=== PATIENT | female | born 1980 | race Caucasian/White ===

== ENCOUNTER 2018-07-16 12:34 | Inpatient (IN) ==
--- NOTE | 2018-07-16 14:00 | ED ---
History of Present Illness Primary Care Physician: No Primary Care Physician Chief Complaint: Leaking of fluid History of Present Illness: 38 year-old , IUP at 40.5 care complicated by advanced maternal age, cervical cancer The patient presents complaining of the onset of leaking of fluid about 9:15 or 9:30 am. She reports she had a large gush of clear fluid and a second gush of clear to cloudy fluid. She does not believe it was urine. She has continued having some leaking since. She reports that she saturated half of a towel. She denies any painful contractions or cramping. She reports good movement. She denies any vaginal bleeding. She has no other obstetrical complaints or concerns today. INTERMEDIATE MANAGER: , history of cervical cancer s/p [facility] PMH: Denies FH: Denies PSH: Breast augmentation, [facility] SH: Denies Meds/Allergies: As per EMR - Inpatient Certification I certify that the inpatient services were ordered in accordance with Medicare regulations governing the order. This includes certification that hospital inpatient services are reasonable and necessary and in the case of services not specified as inpatient-only under 42 CFR 419.22(n), that they are appropriately provided as inpatient services in accordance to with the 2-midnight benchmark under 43 CFR 412.3(e) Review of Systems All other systems reviewed negative except as stated in HPI PMFSH - Travel History Recent Travel in the [place] Within the Last 8 Weeks: No Recent Travel Out of the Country Within the Last 8 Weeks: No Medications and Allergies Allergies Allergy/AdvReac Type Severity Reaction Status Date / Time No Known Allergies Allergy Verified 07/16/18 12:53 Home Medications Medication Instructions Recorded Confirmed Type vit,[id number] 1 tab PO DAILY 07/16/18 07/16/18 History [PNV 29-1] Exam Vital signs: Vital Signs 07/16/18 13:10 07/16/18 13:15 Temperature 98.1 F Pulse Rate 88 Respiratory Rate 18 Blood Pressure 126/87 Intake & Output 07/15/18 07/16/18 07/16/18 18:59 06:59 18:59 Weight 61.689 kg Narrative: GENERAL: Well-nourished, well-developed patient. SKIN: Warm and dry. No rashes, masses, lesions noted HEAD: Normocephalic and atraumatic. EYES: No scleral icterus. No injection or drainage. ENT: No nasal drainage noted. Mucous membranes pink. Airway patent. NECK: Supple, trachea midline. No JVD. CARDIOVASCULAR: Regular rate and rhythm without murmurs, gallops, or rubs. RESPIRATORY: Breath sounds equal bilaterally. No accessory muscle use. BREASTS: Deferred ABDOMEN/GI: Abdomen soft, non-tender, bowel sounds present, no rebound, no guarding Gravid GENITOURINARY: Normal EGBUS. No cervical or vaginal masses noted. Increased fluid consistent with ROM. Amnisure positive. No cervical or vaginal masses noted. SVE closed to fingertip, 50, -2/-3 FHT's: heart tones are in the 130s with moderate long-term variability, good accelerations, no decelerations noted. This a category 1 heart rate tracing and reactive NST. EXTREMITIES: No cyanosis or edema. BACK: Nontender without obvious deformity. NEUROLOGICAL: Awake and alert x3. Normal memory/affect. Cranial nerves II through XII grossly intact. Grossly normal range of motion.. Motor and sensory grossly within normal limits. Five out of 5 muscle strength in all muscle groups. Normal speech. Assessment and Plan - Plan Assessment/plan: 1. IUP at 40.5 2. Advanced maternal age 3. PROM: Patient shows evidence of ruptured membranes. Will admit to Dr. Allen. Dr. Allen is aware. 4. well-being: Reassuring testing with reactive NST and category 1 heart rate tracing. Continue monitoring 5. GBS negative 6. History of cervical cancer status post [facility] Discharge Plan - Discharge Disposition Patient Disposition: 30 Still Patient - Physicians Team ED Provider: Massiel Moses Primary Care Provider: Primary Care Ben,Dian
[2018-07-16] MEDS ORDERED: fentaNYL Citrate Inj 100 MCG/2 ML Ampul IV.PUSH PRN ×2 (14:06)
[2018-07-16] MEDS ORDERED: Naloxone Inj 0.4 MG/ML Vial IV.PUSH PRN (14:06)
[2018-07-16] MEDS ORDERED: Sodium Chlor 0.9% Inj 500 ML IV.SIG PRN (14:06)
[2018-07-16] MEDS ORDERED: Sod Chloride 0.9% Inj 1,000 ML IV.CONT PRN (14:06)
[2018-07-16] MEDS ORDERED: Oxytocin 30 Units/500ml Premix 30 UNITS/500 ML BAG IV.SIG ONE (14:06)
[2018-07-16] MEDS ORDERED: Citric Acid/Sodium Citrate Liq 30 ML UDC PO SCH (14:15)
[2018-07-16 14:51] LABS: Baso # (Auto) 0.1 th/mm3 (0.0-0.2); Baso % (Auto) 0.6 % (0.0-2.0); Eos % (Auto) 0.2 % (0.0-4.0); Hematocrit 39.2 % (35.0-46.0); Hemoglobin 13.2 gm/dL (11.6-15.3); Lymph % (Auto) 18.7 % (9.0-44.0); Mean Corpuscular HGB Conc 33.7 % (32.0-36.0); Mean Corpuscular Hemoglobin 32.6 pg (27.0-34.0); Mean Corpuscular Volume 96.7 fL (80.0-100.0); Mean Platelet Volume 12.8 fL (7.0-11.0); Mono # (Auto) 0.9 th/mm3 (0.0-0.9); Mono % (Auto) 8.3 % (0.0-8.0); Neut # (Auto) 7.9 th/mm3 (1.8-7.7); Neut % (Auto) 72.2 % (16.0-70.0); Platelet Count 127 th/mm3 (150-450); Red Blood Count 4.05 mil/mm3 (4.00-5.30); Red Cell Distribution Width 14.6 % (11.6-17.2)
[2018-07-16 15:54] LABS: Bacteria,Urine Occasional /hpf; Bilirubin,Urine Negative (Negative); Clarity,Urine Cloudy (Clear); Color,Urine Yellow (Yellw/Straw); Glucose,Urine (UA) Negative (Negative); Leukocyte Esterase,Urine Negative (Negative); Mucus,Urine Few /lpf (Occasional); Nitrite,Urine Negative (Negative); Specific Gravity,Urine 1.011 (1.002-1.035); Squamous Epithelial Cell,Urine 36 /hpf (0-5)
[2018-07-16 16:14] LABS: Amphetamine Urine With Conf Neg (Neg); Benzodiazepine Urine With Conf Neg (Neg)
--- NOTE | 2018-07-16 21:18 | P.OBLABOR ---
Subjective Interval history: doing well. She is on cytotec contractions more than 3 in 10 min Objective Vital Signs: Vital Signs - 8 hr 07/16/18 14:55 07/16/18 15:05 07/16/18 15:10 Temperature Pulse Rate 81 79 86 Respiratory Rate Blood Pressure 07/16/18 15:15 07/16/18 15:25 07/16/18 15:35 Temperature 97.8 F Pulse Rate 82 78 83 Respiratory Rate 18 Blood Pressure 131/76 07/16/18 15:40 07/16/18 15:45 07/16/18 16:15 Temperature Pulse Rate 82 82 88 Respiratory Rate Blood Pressure 07/16/18 16:16 07/16/18 16:25 07/16/18 16:40 Temperature Pulse Rate 73 77 Respiratory Rate 18 Blood Pressure 112/71 07/16/18 16:55 07/16/18 17:10 07/16/18 17:15 Temperature Pulse Rate 82 72 77 Respiratory Rate Blood Pressure 07/16/18 17:27 07/16/18 17:40 07/16/18 18:23 Temperature 98.2 F Pulse Rate 76 84 81 Respiratory Rate 18 Blood Pressure 136/84 121/80 07/16/18 18:24 07/16/18 18:25 07/16/18 18:50 Temperature Pulse Rate 92 H 73 Respiratory Rate 18 Blood Pressure 07/16/18 18:55 07/16/18 19:40 07/16/18 20:05 Temperature Pulse Rate 82 74 76 Respiratory Rate Blood Pressure 07/16/18 20:51 07/16/18 20:54 07/16/18 20:55 Temperature 97.9 F Pulse Rate 71 75 Respiratory Rate 18 Blood Pressure 117/80 Objective: Pelvic Exam: Cervix: [-] Dilatation: [-] Effacement: [-] Station: [-] Presentation: [-] Membranes: [intact or ruptured] Uterine Contractions: [-] FHT's: Category: [-] Baseline: [-] Reactive: [-] Variability: [-] Decels: [-] Patient Started Active Labor: Yes Active Labor Start Date: 07/16/18 Medical Induction of Labor: No Artificial Rupture of Membrane: No (SROM closed cervix) Assessment and Plan - Plan 40 weeks and SROM
[2018-07-17] MEDS ORDERED: fentaNYL 2MCG-Bupiv 0.125% Epi 150 ML EPIDURAL ONE (03:26)
[2018-07-17] MEDS ORDERED: Lidocaine 2%/Epinephrine 1:200,000 PF 10 ML SDV ONE ×2 (03:32→06:38)
[2018-07-17] MEDS ORDERED: fentaNYL 2MCG-Bupiv 0.125% Epi 150 ML EPIDURAL PRN (04:20)
[2018-07-17] MEDS ORDERED: fentaNYL Citrate Inj 100 MCG/2 ML Ampul EPIDURAL ONE (04:20)
[2018-07-17] MEDS ORDERED: Bupivacaine PF 0.25% Inj 10 ML Vial ONE (06:37)
--- NOTE | 2018-07-17 08:37 | P.OBLABOR ---
Subjective Interval history: doing well. She has had some decels but resolved with position change and o2 Objective Vital Signs: Vital Signs - 8 hr 07/17/18 00:40 07/17/18 00:45 07/17/18 01:00 Temperature 98.2 F Pulse Rate 75 68 89 Respiratory Rate 16 Blood Pressure 102/71 07/17/18 01:35 07/17/18 01:55 07/17/18 02:05 Temperature Pulse Rate 70 78 72 Respiratory Rate Blood Pressure 07/17/18 02:10 07/17/18 02:40 07/17/18 02:45 Temperature Pulse Rate 72 74 71 Respiratory Rate Blood Pressure 07/17/18 02:49 07/17/18 03:00 07/17/18 03:25 Temperature 98.5 F Pulse Rate 72 Respiratory Rate 22 Blood Pressure 118/65 07/17/18 03:45 07/17/18 03:50 07/17/18 04:00 Temperature Pulse Rate 85 78 74 Respiratory Rate 14 Blood Pressure 119/91 H 110/67 103/71 07/17/18 04:10 07/17/18 04:25 07/17/18 05:00 Temperature Pulse Rate 74 78 67 Respiratory Rate Blood Pressure 94/53 L 95/74 L 07/17/18 05:10 07/17/18 05:26 07/17/18 05:30 Temperature 97.6 F Pulse Rate 68 83 106 H Respiratory Rate 16 Blood Pressure 101/70 101/69 07/17/18 05:45 07/17/18 06:00 07/17/18 06:15 Temperature Pulse Rate 114 H 90 95 H Respiratory Rate Blood Pressure 93/68 L 101/70 97/69 L 07/17/18 06:30 07/17/18 06:45 07/17/18 07:00 Temperature Pulse Rate 91 H 96 H 98 H Respiratory Rate Blood Pressure 92/56 L 99/58 L 98/57 L 07/17/18 07:04 07/17/18 07:30 07/17/18 08:07 Temperature 98.1 F Pulse Rate Respiratory Rate 18 18 Blood Pressure 121/90 07/17/18 08:08 Temperature Pulse Rate 107 H Respiratory Rate Blood Pressure 135/74 Objective: Pelvic Exam: Cervix: [-] Dilatation:8 Effacement: 100 Station: -2 Presentation: vtx Membranes: SROM at home 07/16 Uterine Contractions: q3 FHT's: Category: 1 resolved cat 2 Baseline: [-] Reactive: [-] Variability: [-] Decels: [-] Assessment and Plan - Diagnosis (1) 40 weeks gestation of Code(s): Z3A.40 - 40 weeks gestation of Status: Acute - Plan 40 weeks and SROM
[2018-07-17] MEDS ORDERED: Oxytocin 30 Units/500ml Premix 30 UNITS/500 ML BAG IV.SIG PRN ×2 (10:46→17:25)
[2018-07-17] MEDS ORDERED: Phenylephrine/NS 1000 MCG/10ML Syringe IV.PUSH ONE (11:38)
[2018-07-17] MEDS ORDERED: Naloxone Inj 0.4 MG/ML Vial IV.PUSH PRN (12:00)
[2018-07-17] MEDS ORDERED: Morphine Sulfate PF Inj 5 MG/10 ML Ampul ONE (12:20)
[2018-07-17] MEDS ORDERED: Ibuprofen 600 MG Tablet PO PRN (12:24)
[2018-07-17] MEDS ORDERED: Simethicone 80 MG Chew Tablet PO PRN (12:24)
--- NOTE | 2018-07-17 12:24 | P.OBLABOR ---
Subjective Interval history: 38 yo patient less than 5 feet tall, has been 8 cm for 4 hours and now has decelerations again, She has had some intolerance at 40 6/7 weeks improved at times but seems that baby has distress and not progressing so a section must be performed for well being. Pt aware of the emergent nature for the CS Objective Vital Signs: Vital Signs - 8 hr 07/17/18 04:25 07/17/18 05:00 07/17/18 05:10 Temperature Pulse Rate 78 67 68 Respiratory Rate Blood Pressure 94/53 L 95/74 L 07/17/18 05:26 07/17/18 05:30 07/17/18 05:45 Temperature 97.6 F Pulse Rate 83 106 H 114 H Respiratory Rate 16 Blood Pressure 101/70 101/69 93/68 L 07/17/18 06:00 07/17/18 06:15 07/17/18 06:30 Temperature Pulse Rate 90 95 H 91 H Respiratory Rate Blood Pressure 101/70 97/69 L 92/56 L 07/17/18 06:45 07/17/18 07:00 07/17/18 07:04 Temperature 98.1 F Pulse Rate 96 H 98 H Respiratory Rate 18 Blood Pressure 99/58 L 98/57 L 07/17/18 07:30 07/17/18 08:07 07/17/18 08:08 Temperature Pulse Rate 107 H Respiratory Rate 18 Blood Pressure 121/90 135/74 07/17/18 09:12 07/17/18 10:05 07/17/18 10:06 Temperature 98.1 F Pulse Rate 78 71 Respiratory Rate 18 18 Blood Pressure 102/57 L 106/54 L 07/17/18 11:01 Temperature 98.2 F Pulse Rate 74 Respiratory Rate 18 Blood Pressure 111/74 Objective: Pelvic Exam: Cervix: [-] Dilatation: 8 Effacement: [-] Station: -2 Presentation: [-] Membranes: SROM Uterine Contractions: [-] FHT's: Category: 2 Baseline: [-] Reactive: [-] Variability: [-] Decels: [-] Assessment and Plan - Diagnosis (1) 40 weeks gestation of Code(s): Z3A.40 - 40 weeks gestation of Status: Acute (2) distress affecting delivery of first Code(s): O77.9 - Labor and delivery complicated by stress, unspecified Status: Acute - Plan 40 weeks and SROM
--- NOTE | 2018-07-17 12:29 | P.OBDELI ---
Procedure Note - Pre Op Diagnosis (1) distress affecting delivery of first - Post Op Diagnosis (1) distress affecting delivery of first Performed by: Humble Allen MD Procedure: Primary Low Transverse Section Indication for Delivery: Nonreassuring heart tracing Informed Consent Obtained: For anesthesia, For procedure Confirmed Correct: Patient, Procedure, Time-out taken Anesthesia: Epidural Medication Prior to Procedure: As documented in eMAR Monitoring During Procedure: Blood pressure monitoring, rate inserter, Pulse oximetry Urinary Catheter: Inserted using sterile technique, To dependent drainage Sterile Preparation: Duraprep Position: Supine with wedge to left side - Operative Features Skin Incision: Pfannenstiel Uterine Incision: Low transverse w/knife / blunt ext Membranes Ruptured: Previously Presentation: Occiput anterior Status of Infant: Viable, Nursery present Placenta Delivered: Intact Medications: Antibiotics, Oxytocin Estimated blood loss (mL): 500 Procedure Tolerated: Well Maternal Condition: Stable Baby Condition: Stable Procedure in Detail: Taken to the operating room identified by name band and verbally and given a regional anesthetic. She was prepped and draped in the usual sterile manner for a section. A time out was taken. A Pfannenstiel incision was made and carried down to the fascia the fascia was nicked bilaterally and the fascia was taken off the rectus muscle by blunt and sharp dissection. The rectus muscles were spread bluntly and the peritoneum was entered under direct vision. The incision was extended with care to avoid the urinary bladder. A bladder blade was placed and a bladder flap was created in the usual fashion. The lower uterine segment was then incised sharply in a transverse manner and taken down in the midline until the uterine cavity was entered. The incision was extended with the surgeon's fingers. The vertex was grasped and with fundal pressure the vertex was delivered without difficulty hypopharynx and nasopharynx were suctioned and the remainder of the delivered without difficulty. The cord clamping was delayed 45 seconds and then the cord was clamped cut and the was handed over to the resuscitation team cord blood was obtained the placenta was removed manually and the uterus was curettaged twice with a wet lap. The uterus was delivered from the abdomen. The uterine incision was repaired with 0 chromic in a running fashion in 2 layers the second layer imbricating the first. The cul-de-sac and gutters were cleaned of blood and debris the uterus was delivered back into the abdomen. The rectus muscles were reapproximated with 0 Vicryl in a running the fascia was repaired with 0 Vicryl from lateral to midline bilaterally. The subcutaneous layer was repaired with a 3-0 Vicryl. The skin was repaired with a 4-0 Monocryl in a subcuticular manner. Patient tolerated the procedure well and went to recovery room in good condition. - Infant: Male, Single ( 9/9 aqnd Weight 7# 6 oz)
[2018-07-17] MEDS ORDERED: Oxytocin 30 Units/500ml Premix 30 UNITS/500 ML BAG IV.SIG ONE (13:00)
[2018-07-17] MEDS ORDERED: Oxytocin 30 Units/500ml Premix 30 UNITS/500 ML BAG ONE (13:05)
[2018-07-18 05:50] LABS: Baso % (Auto) 0.4 % (0.0-2.0); Eos % (Auto) 0.1 % (0.0-4.0); Hematocrit 27.1 % (35.0-46.0); Hemoglobin 9.1 gm/dL (11.6-15.3); Lymph # (Auto) 1.5 th/mm3 (1.0-4.8); Lymph % (Auto) 11.4 % (9.0-44.0); Mean Corpuscular HGB Conc 33.6 % (32.0-36.0); Mean Corpuscular Hemoglobin 32.4 pg (27.0-34.0); Mean Corpuscular Volume 96.5 fL (80.0-100.0); Mean Platelet Volume 11.7 fL (7.0-11.0); Mono % (Auto) 7.9 % (0.0-8.0); Neut # (Auto) 10.3 th/mm3 (1.8-7.7); Neut % (Auto) 80.2 % (16.0-70.0); Platelet Count 89 th/mm3 (150-450); Red Blood Count 2.81 mil/mm3 (4.00-5.30); Red Cell Distribution Width 15.1 % (11.6-17.2); White Blood Count 12.9 th/mm3 (4.0-11.0)
[2018-07-18 07:05] LABS: Lymphocytes 7 % (9-44); Monocytes 8 % (0-8); Platelet Morphology Normal (Normal)
--- NOTE | 2018-07-18 08:44 | P.PNOB ---
Subjective Post day: 1 Interval history: doing well after CS. She is eating and ambulating Objective Vital Signs/I&O: Vital Signs 07/17/18 09:12 07/17/18 10:05 07/17/18 10:06 Temperature 98.1 F Pulse Rate 78 71 Respiratory Rate 18 18 Blood Pressure 102/57 L 106/54 L Pulse Oximetry 07/17/18 11:01 07/17/18 12:15 07/17/18 12:30 Temperature 98.2 F 98.2 F Pulse Rate 74 119 H Respiratory Rate 18 18 Blood Pressure 111/74 98/58 L 87/49 L Pulse Oximetry 07/17/18 12:32 07/17/18 12:35 07/17/18 12:45 Temperature Pulse Rate 86 Respiratory Rate 18 Blood Pressure 84/56 L 99/54 L Pulse Oximetry 07/17/18 12:50 07/17/18 13:00 07/17/18 13:05 Temperature 98.0 F Pulse Rate 79 Respiratory Rate 18 18 Blood Pressure 110/60 Pulse Oximetry 07/17/18 18:23 07/17/18 20:00 07/18/18 00:00 Temperature 98.0 F 97.9 F 98.0 F Pulse Rate 65 71 83 Respiratory Rate 16 18 18 Blood Pressure 122/76 90/65 L 97/63 L Pulse Oximetry 97 07/18/18 04:00 Temperature 98.2 F Pulse Rate 93 H Respiratory Rate 18 Blood Pressure 96/69 L Pulse Oximetry Intake & Output 07/17/18 07/18/18 07/18/18 18:59 06:59 18:59 Intake Total 1999 450 / 450 Balance 1999 450 / 450 Intake: IV 1999 / 1999 450 / 450 LR 1000 mL Inj 1,000 ML @ 100 1000 / 1000 450 / 450 mls/hr IV.CONT .Q10H PAIGE Rx#: [id number] LR 1000 mL Inj 1,000 ML @ 3000 1000 / 1000 mls/hr IV.SIG UNSCH PRN Rx#: [id number] Result Diagrams: 07/18/18 04:18 Objective Remarks: GENERAL: Well-nourished, well-developed patient. ABDOMEN/GI: Abdomen soft, non-tender. incision clean and dry Fundus: Firm, non-tender at umbilicus. GENITOURINARY: Light to moderate bleeding. EXTREMITIES: No cyanosis or edema, non-tender, without signs of DVT. Medications and IVs: Active Medications Diphenhydramine HCl (Benadryl) 50 mg PO Q6H PRN PRN Reason: MILD TO MODERATE ITCHING Stop: 07/18/18 11:59 Diphenhydramine HCl (Benadryl Inj) 25 mg IV.PUSH Q6H PRN PRN Reason: MILD TO MODERATE ITCHING Stop: 07/18/18 11:59 Diphtheria/Pertussis/Tetanus Vacc (Boostrix Vaccine Inj) 0.5 ml IM .ONCE ONE Stop: 07/18/18 16:01 Acetaminophen (Ofirmev Inj) 1,000 mg in 100 mls @ 400 mls/hr IV.SIG NOW PRN PRN Reason: PAIN SCALE 1 TO 10 Last Admin: 07/17/18 02:43 Dose: 400 mls/hr Fentanyl/Bupivacaine/Sodium Chlor (Fentanyl 2 Mcg-Bupiv 0.125% Epi) 150 mls @ 12 mls/hr EPIDURAL PRN PRN PRN Reason: for Labor Pain Last Admin: 07/17/18 04:52 Dose: 12 mls/hr Oxytocin (Pitocin 30 Units/Ns 500 Ml Premix) 30 units in 500 mls @ 1 mls/hr IV.SIG TITRATE PRN; Protocol PRN Reason: For induction of labor Lactated Ringer's (Lr 1000 Ml Inj) 1,000 mls @ 100 mls/hr IV.CONT .Q10H PAIGE Stop: 07/18/18 13:24 Last Admin: 07/18/18 04:56 Dose: Not Given Oxytocin (Pitocin 30 Units/Ns 500 Ml Premix) 30 units in 500 mls @ 100 mls/hr IV.SIG PRN PRN PRN Reason: Heavy bleeding Stop: 07/18/18 17:24 Ibuprofen (Motrin) 600 mg PO Q6H PRN PRN Reason: cramping Measles/Mumps/Rubella Vaccine Live (M-M-R Ii Vaccine Inj) 0.5 ml SQ .ONCE ONE Stop: 07/18/18 16:01 Miscellaneous Information ([facility] [place] [facility] Information) 1 each OTHER UNSCH PRN PRN Reason: SEE LABEL COMMENTS Stop: 07/18/18 11:59 Miscellaneous Information ([facility] [place] [facility] Information) 1 each OTHER UNSCH PRN PRN Reason: SEE LABEL COMMENTS Stop: 07/18/18 11:59 Naloxone HCl (Narcan Inj) 0.4 mg IV.PUSH UNSCH PRN PRN Reason: SEE LABEL COMMENTS Stop: 07/18/18 11:59 Ondansetron HCl (Zofran Inj) 4 mg IV.PUSH Q6H PRN PRN Reason: NAUSEA OR VOMITING Oxycodone/Acetaminophen (Percocet 5/325 Mg) 1 tab PO Q4H PRN PRN Reason: PAIN SCALE 3 TO 5 Oxycodone/Acetaminophen (Percocet 5/325 Mg) 2 tab PO Q4H PRN PRN Reason: PAIN SCALE 6 TO 10 Simethicone (Mylicon Chew) 80 mg PO QID PRN PRN Reason: FLATULENCE Sodium Chloride (Ns Flush) 2 ml IV.FLUSH BID PAIGE Last Admin: 07/18/18 04:56 Dose: Not Given Sodium Chloride (Ns Flush) 2 ml IV.FLUSH UNSCH PRN PRN Reason: FLUSH AFTER USING IV ACCESS Assessment and Plan - Diagnosis (1) 40 weeks gestation of Code(s): Z3A.40 - 40 weeks gestation of Status: Acute (2) distress affecting delivery of first Code(s): O77.9 - Labor and delivery complicated by stress, unspecified Status: Acute - Plan 40 weeks and SROM
[2018-07-18] MEDS ORDERED: Diphtheria/Tetanus/Pertussis Vaccine Inj 0.5 ML Syringe IM ONE (16:00)
[2018-07-18] MEDS ORDERED: Measles/Mumps/Rubella Vaccine Inj 0.5 ML Vial SQ ONE (16:00)
[2018-07-18] MEDS: Ketorolac 10 MG Tablet PO PRN ×2 (17:01→22:12)
[2018-07-19] MEDS: Ketorolac 10 MG Tablet PO PRN ×2 (04:54→13:55)
--- NOTE | 2018-07-19 15:02 | P.PNOB ---
Subjective Post day: 2 Interval history: doing well Objective Vital Signs/I&O: Vital Signs 07/18/18 20:00 07/19/18 08:00 Temperature 97.3 F L 97.9 F Pulse Rate 82 75 Respiratory Rate 18 20 Blood Pressure 109/69 122/81 Result Diagrams: 07/18/18 04:18 Objective Remarks: GENERAL: Well-nourished, well-developed patient. ABDOMEN/GI: Abdomen soft, non-tender. Fundus: Firm, non-tender at umbilicus. GENITOURINARY: Light to moderate bleeding. EXTREMITIES: No cyanosis or edema, non-tender, without signs of DVT. Medications and IVs: Active Medications Fentanyl/Bupivacaine/Sodium Chlor (Fentanyl 2 Mcg-Bupiv 0.125% Epi) 150 mls @ 12 mls/hr EPIDURAL PRN PRN PRN Reason: for Labor Pain Last Admin: 07/17/18 04:52 Dose: 12 mls/hr Oxytocin (Pitocin 30 Units/Ns 500 Ml Premix) 30 units in 500 mls @ 1 mls/hr IV.SIG TITRATE PRN; Protocol PRN Reason: For induction of labor Ketorolac Tromethamine (Toradol) 10 mg PO Q6H PRN PRN Reason: CRAMPING Stop: 07/23/18 12:17 Last Admin: 07/19/18 13:55 Dose: 10 mg Ondansetron HCl (Zofran Inj) 4 mg IV.PUSH Q6H PRN PRN Reason: NAUSEA OR VOMITING Oxycodone/Acetaminophen (Percocet 5/325 Mg) 1 tab PO Q4H PRN PRN Reason: PAIN SCALE 3 TO 5 Last Admin: 07/18/18 22:11 Dose: 1 tab Oxycodone/Acetaminophen (Percocet 5/325 Mg) 2 tab PO Q4H PRN PRN Reason: PAIN SCALE 6 TO 10 Last Admin: 07/19/18 10:14 Dose: 2 tab Simethicone (Mylicon Chew) 80 mg PO QID PRN PRN Reason: FLATULENCE Sodium Chloride (Ns Flush) 2 ml IV.FLUSH BID PAIGE Last Admin: 07/19/18 01:41 Dose: Not Given Sodium Chloride (Ns Flush) 2 ml IV.FLUSH UNSCH PRN PRN Reason: FLUSH AFTER USING IV ACCESS Assessment and Plan - Diagnosis (1) 40 weeks gestation of Code(s): Z3A.40 - 40 weeks gestation of Status: Acute (2) distress affecting delivery of first Code(s): O77.9 - Labor and delivery complicated by stress, unspecified Status: Acute (3) delivery delivered Code(s): O82 - Encounter for delivery without indication Status: Acute - Plan 40 weeks and SROM
--- NOTE | 2018-07-19 15:17 | P.DS ---
Date of admission: 07/16/18 13:57 Primary care physician: Dian Primary Care Physician Brief History from admission: 38 yo came in at 40 weeks with SROM DS: Diagnosis - Discharge Diagnosis (1) 40 weeks gestation of Status: Acute (2) distress affecting delivery of first Status: Acute (3) delivery delivered Status: Acute DS: Medications - Discharge Medications Prescriptions: oxycodone-acetaminophen 2 tab PO Q4H PRN 3 Days #24 tab PRN Reason: Pain Scale 6 To 10 DS: Summary Hospital Course: Patient at 40 5/7 weeks came in SROM in labor. she labored but had CS for distress with late decels. She dis well for 2 days PP - Time Spent with Patient Total time spent providing and/or coordinating discharge services: Less than 30 minutes Exam Vital signs: Vital Signs 07/18/18 20:00 07/19/18 08:00 Temperature 97.3 F L 97.9 F Pulse Rate 82 75 Respiratory Rate 18 20 Blood Pressure 109/69 122/81 - Constitutional no acute distress Results Procedures completed during hospitalization: section Discharge Plan - Discharge Disposition Patient Disposition: Discharge Home - Discharge Condition Condition: Good - Discharge Order Discharge Orders: Discharge Order (Routine); Ordered 07/19/18 Ordered By: Humble Allen - Physicians Team Primary Care Provider: Primary Care Dian Contreras Attending Provider: Humble Allen
== END 2018-07-19 16:12 | disposition home or self-care (01) ==
LOC: HOBED 12:34 → H2E 13:57 → H1EA 07-17 13:52
PROVIDERS: ADMIT Obstetrics & Gynecology; ATTEND Obstetrics & Gynecology